=== PATIENT | female | born 1995 | race Caucasian/White ===

== ENCOUNTER 2016-12-05 13:47 | Inpatient (IN) | payer BC, MEDICAID ==
[~2016-12-05] VITALS: Ht 162.6 cm; Wt 99.0 kg
[2016-12-05 14:10] VITALS: BP 133/69; PULSE 61; RESP 16; Ht 162.6 cm; Wt 99.0 kg
[2016-12-05] MEDS ORDERED: ONDANSETRON 4 MG INJ IV PRN (15:30)
[2016-12-05] MEDS ORDERED: ACETAMINOPHEN 325 MG TAB PO PRN (15:30)
[2016-12-05] MEDS ORDERED: NACL 0.9% 3 ML SYG IV SCH (15:30)
[2016-12-05] MEDS ORDERED: BISACODYL 10 MG SUPP PR PRN (15:30)
[2016-12-05] MEDS ORDERED: ACETAMINOPHEN 650 MG SUPP PR PRN (15:30)
--- NOTE | 2016-12-05 15:30 | HP ---
Date/Time of Note Date/Time of Note DATE: 12/05/16 TIME: 15:16 Assessment/Plan VTE Prophylaxis VTE Prophylaxis Intervention: SCD's Assessment/Plan Chief Complaint/Hosp Course Assessment and plan 1. Abdominal pain. Patient with recent history of gastritis and clinical symptoms consistent with GERD. Will provide with PPI medication. Patient also noted with dilated CBD. Will get process development chemist follow. 2. Bradycardia. Etiology unknown. Follow-up an EKG. Will get egg breaking machine operator to follow pending clinical course. Patient asymptomatic at present. 3. Positive leukocyte esterase test. Follow-up on urine culture. Afebrile at present and no leukocytosis noted. Will follow. 4. Obesity. Weight reduction is advised. Plan with plan 5. GERD. Start on PPI medication 6. Recent gastritis. Will be placed on PPI Admission process 40 minutes Discussed plan of care with Dr. Lewis Problems: HPI/ROS Admit Date/Time Admit Date/Time Dec 05, 2016 at 13:59 Hx of Present Illness This is a 21-year-old female with history of gallstones status post cholecystectomy who came to [facility] due to reports of abdominal pain. Of note patient was transferred from [facility] due to insurance issue. According to the patient she had been having abdominal pain for the last month. She did report that she initially went to [facility] and at that time was told she had gastritis. She was discharged home with pain medication. Thereafter her pain persisted and went to [facility] and was told again showed gastritis and was given lansoprazole. She did report she took it for 2 weeks and had good response but ran out of the medication and a week after running out of her medication again started to have pain. In the past week she reported abdominal pain that would occur more when she would sleep and lie down at night. She reports that the past 2 days prior to this admission her pain lasted about 3 hours more epigastric nonradiating. She also reported that he was also travel up to her sternal area. She reports that last night her pain lasted all night and would not stop. She subsequently went to the hospital at [place] for further evaluation. At that hospital he did have abdominal pelvic imaging that did show common bile duct measuring 10.5 mm at the head of the pancreas with dilated intra-and extrahepatic ducts with cause not detected. Patient was noted with no leukocytosis. She was seen with a positive leukocyte esterase test however. She is also seen to be bradycardic as low as the 40s. She denies any dysuria however. She did report having some nausea and vomiting with nonbilious nonbloody emesis. She denies any chest pain or shortness of breath or any other associated symptoms. We will evaluate her for the aformentiond ROS 12 point review of systems obtained and entirely negative except that mentioned in history present illness PMH/Family/Social Past Medical History Medical/surgical history 1. Cholelithiasis status post cholecystectomy Social History Alcohol Use: none Drug Use: none Exam/Review of Systems Vital Signs Vitals Vital Signs Date Time Temp Pulse Resp B/P Pulse Ox O2 Delivery O2 Flow Rate FiO2 12/05/16 14:10 97.8 61 16 133/69 100 Room Air Exam Constitutional: alert, oriented Psych: no complaints Head: normocephalic Neck: supple, No jvd Respiratory: clear to auscultation, normal air movement Cardiovascular: regular rate and rhythm Gastrointestinal: non-tender, soft Neurological: STRAP SETTER II-XII intact, nl mental status, nl speech REGIDORUMESH Dec 05, 2016 15:27
[2016-12-05] MEDS: SOD CHLORIDE 0.9% 1,000 ML IV SCH (16:03)
[2016-12-05 16:09] LABS: BASOPHILS % 0.5 % (0.0-2.0); EOSINOPHILS % 0.7 % (0.0-7.0); HEMOGLOBIN 12.3 g/dl (12.0-16.0); LYMPHOCYTES # 1.6 10^3/ul (0.8-2.9); LYMPHOCYTES % 39.3 % (15.0-51.0); MEAN CORPUSCULAR HEMOGLOBIN 29.6 pg (29.0-33.0); MEAN CORPUSCULAR HGB CONC 33.2 g/dl (32.0-37.0); MEAN CORPUSCULAR VOLUME 88.9 fl (82.0-101.0); MONOCYTE # 0.4 10^3/ul (0.3-0.9); MONOCYTES % 9.6 % (0.0-11.0); NEUTROPHILS % 49.7 % (39.0-77.0); PLATELET COUNT 261 10^3/UL (140-415); RED BLOOD COUNT 4.16 10^6/ul (4.20-5.40); WHITE BLOOD COUNT 4.1 10^3/ul (4.8-10.8)
--- NOTE | 2016-12-05 16:16 | CONS ---
Date/Time of Note Date/Time of Note DATE: 12/05/16 TIME: 16:02 Assessment/Plan Assessment/Plan Additional Assessment/Plan Assessment * Abdominal pain * Elevated transaminases * History of cholecystectomy 3 years ago * Obesity Plan * NPO * trend transaminase level * MRCP * may have ice chips * further orders will depend on clinical course Consultation Date/Type/Reason Admit Date/Time Dec 05, 2016 at 13:59 Date of Consultation: Dec 05, 2016 Type of Consultation: Gastroenterology Reason for Consultation abdominal pain/dilated cbd Referring Provider: UMESH REICH Hx of Present Illness 21 year old female with past medical history of cholecystectomy was transferred to our hospital because of epigastric pain and dilated common bile duct by ultrasound,insurance issues.Present condition as on and off epigastric pain sharp,non radiating,with nausea and vomiting.She consulted various emergency room and diagnosed as having gastritis until 2 days prior to consult ,sharp epigastric pain becomes unbearable prompted consult at [facility] ultrasound revealed dilated intra and extrahepatic duct,Cbc showed wbc 6.5, alkaline phosphatase 129,lipase 34 alt 292,ast 448. Presently patient complains of epigastric pain ,no nausea nor vomiting Constitutional: improved, no complaints Eyes: no complaints ENT: no complaints Respiratory: no complaints Cardiovascular: no complaints Gastrointestinal: nausea, pain, vomiting Genitourinary: no complaints Musculoskeletal: no complaints Skin: no complaints Neurologic: no complaints Endocrine: no complaints Lymphatic: no complaints Psychological: no complaints Immunologic: no complaints Past Medical History Medical History: no pertinent history Past Surgical History Past Surgical Hx: cholecystectomy Family History Significant Family History: no pertinent family hx Social History Alcohol Use: none Smoking Status: Never smoker Drug Use: none Exam/Review of Systems Vital Signs Vitals Vital Signs Date Time Temp Pulse Resp B/P Pulse Ox O2 Delivery O2 Flow Rate FiO2 12/05/16 14:10 97.8 61 16 133/69 100 Room Air Exam Constitutional: alert, oriented, well developed Psych: nl mood/affect, no complaints Head: atraumatic, normocephalic Eyes: EOMI, PERRL, nl conjunctiva, nl lids, nl sclera ENMT: nl external ears & nose, nl lips & teeth, nl nasal mucosa & septum Neck: non-tender, supple Respiratory: clear to auscultation, normal air movement Cardiovascular: nl pulses, regular rate and rhythm Gastrointestinal: bowel sounds, soft, tender (epigastric), No rebound or guarding Musculoskeletal: nl extremities to inspection, nl gait and stance Extremities: normal pulses Neurological: SYRUP MIXER II-XII intact, nl mental status, nl speech, nl strength Skin: nl turgor, No rash or lesions Lymph: nl lymph nodes Medications Medications Current Medications Sodium Chloride (NS) 1,000 ml @ 100 mls/hr Q10H IV ; Start 12/05/16 at 15:09 Ondansetron HCl (Zofran Inj) 4 mg Q6H PRN IV NAUSEA AND/OR VOMITING; Start at 15:30 Acetaminophen (Tylenol Tab) 650 mg Q6H PRN PO PAIN LEVEL 1-3 OR FEVER; Start at 15:30 Acetaminophen (Tylenol Supp) 650 mg Q6H PRN [place] PAIN LEVEL 1-3 OR FEVER; Start 12/05/16 at 15:30 Morphine Sulfate (morphine) 2 mg Q4H PRN IV SEVERE PAIN LEVEL 7-10; Start 12/05 at 15:30 Bisacodyl (Dulcolax Supp) 10 mg DAILY PRN [place] CONSTIPATION; Start 12/05/16 at 15 :30 Pantoprazole (Protonix Iv) 40 mg DAILY@06 IV ; Start 12/06/16 at 06:00 MILLICENT BRAVO MD Dec 05, 2016 16:15
[2016-12-05 16:29] LABS: ALBUMIN 3.8 g/dl (3.3-4.9); ALBUMIN/GLOBULIN RATIO 1.52; BILIRUBIN,INDIRECT 0.4 mg/dl (0-1.1); BILIRUBIN,TOTAL 0.4 mg/dl (0.2-1.3); CALCIUM 8.8 mg/dl (8.4-10.2); CREATININE 0.58 mg/dl (0.44-1.00); POTASSIUM 4.1 mmol/L (3.5-5.1); TOTAL PROTEIN 6.3 g/dl (6.1-8.1)
--- NOTE | 2016-12-05 20:33 | RADRPT ---
PROCEDURE: MR Abdomen without contrast and MRCP. CLINICAL INDICATION: Abdominal pain. TECHNIQUE: Routine MRI abdomen without contrast, including MRCP, was performed. COMPARISON: None. FINDINGS: Liver demonstrates homogeneous signal and enhancement without a focal lesion. There is trace perihe patic fluid. The gallbladder is surgically absent. The biliary system is normal in caliber. A tiny filling defe ct measuring up to 3 mm is inconsistently demonstrated. The spleen, adrenal glands, and pancreas are unremarkable. Renal enhancement is symmetric without hydronephrosis. The visualized bowel is normal in caliber without mural thickening. Marrow signal is unremarkable. IMPRESSION: MRCP images are limited by respiratory motion artifact. However, there does appear to be a tiny 3 m m filling defect in the distal common bile duct suggestive of a small retained stone. Recommend ERC P for further assessment, especially given elevation of LFTs. RPTAT: HEKC .Gordon Falcon MD, Date Time Electronically viewed and signed by .Gordon Falcon MD, on 12/05/2016 20:33 .C/
[2016-12-05 20:38] VITALS: BP 124/64; RESP 16
[2016-12-06] VITALS (12 sets, daily range): BP systolic 101–121; BP diastolic 53–75; PULSE 54–102; RESP 13–20
[2016-12-06] MEDS: SOD CHLORIDE 0.9% 1,000 ML IV SCH ×4 (01:09→21:09)
[2016-12-06] MEDS: morphine 2 MG INJ IV PRN (01:36)
[2016-12-06] MEDS: PANTOPRAZOLE 40 MG INJ IV SCH (05:20)
[2016-12-06 05:39] LABS: BILIRUBIN,INDIRECT 0.4 mg/dl (0-1.1); BILIRUBIN,TOTAL 0.4 mg/dl (0.2-1.3); CALCIUM 8.6 mg/dl (8.4-10.2); CREATININE 0.66 mg/dl (0.44-1.00); MAGNESIUM 1.8 mg/dl (1.7-2.5)
[2016-12-06 05:40] LABS: ALBUMIN 3.6 g/dl (3.3-4.9); ALBUMIN/GLOBULIN RATIO 1.44; CHOL/HDL RATIO 2.3 RATIO; TOTAL PROTEIN 6.1 g/dl (6.1-8.1)
[2016-12-06] MEDS ORDERED: PROPOFOL 200 MG INJ ONE (07:00)
[2016-12-06 07:34] LABS: T3 UPTAKE 33.3 % (23.5-40.5)
[2016-12-06 07:51] LABS: THYROID STIMULATING HORMONE 1.35 MIU/L (0.465-4.680)
[2016-12-06] MEDS ORDERED: INDOMETHACIN 50 MG SUPP PR ONE (10:30)
--- NOTE | 2016-12-06 14:46 | PN ---
Date/Time of Note Date/Time of Note DATE: 12/06/16 TIME: 14:40 Assessment/Plan VTE Prophylaxis VTE Prophylaxis Intervention: SCD's Lines/Catheters IV Catheter Type (from [facility]): Peripheral IV Assessment/Plan Chief Complaint/Hosp Course Assessment and plan 1. Abdominal pain. Patient with recent history of gastritis and clinical symptoms consistent with GERD. Will provide with PPI medication. Patient also noted with dilated CBD. GI consult following. MRCP showing: MRCP images are limited by respiratory motion artifact. However, there does appear to be a tiny 3 mm filling defect in the distal common bile duct suggestive of a small retained stone. Recommend ERCP for further assessment, especially given elevation of LFTs. Follow up with GI recs 2. Bradycardia. Etiology unknown. Follow-up an EKG. Will get assistant professor of chemistry to follow pending clinical course. Patient asymptomatic at present. 3. Positive leukocyte esterase test. Follow-up on urine culture. Afebrile at present and no leukocytosis noted. Will follow. 4. Obesity. Weight reduction is advised. Plan with plan 5. GERD. Start on PPI medication 6. Recent gastritis. Will be placed on PPI Disposition and plan: GI following. Possible need for ERCP. We will follow-up with gastroneurologist. Continue inpatient monitoring for now. Discussed plan of care with Dr. Naylor Problems: Subjective 24 Hr Interval Summary Free Text/Dictation no s/s of distress Exam/Review of Systems Vital Signs Vitals Vital Signs Date Time Temp Pulse Resp B/P Pulse Ox O2 Delivery O2 Flow Rate FiO2 12/06/16 09:26 98.4 52 20 114/53 100 12/05/16 14:10 Room Air Intake and Output 12/05/16 12/05/16 12/06/16 15:00 23:00 07:00 Intake Total 200 ml 1100 ml Output Total 300 ml Balance 200 ml 800 ml Exam Constitutional: alert, oriented Head: normocephalic Eyes: nl conjunctiva Respiratory: clear to auscultation Cardiovascular: regular rate and rhythm Gastrointestinal: soft, tender Musculoskeletal: nl extremities to inspection Neurological: ADULT NEUROLOGIST II-XII intact, nl mental status, nl speech Results Result Diagram: 12/05/16 1550 12/06/16 0452 Results 24 hrs Laboratory Tests Test 12/05/16 15:50 12/06/16 04:52 White Blood Count 4.1 L Red Blood Count 4.16 L Hemoglobin 12.3 Hematocrit 37.0 Mean Corpuscular Volume 88.9 Mean Corpuscular Hemoglobin 29.6 Mean Corpuscular Hemoglobin Concent 33.2 Red Cell Distribution Width 13.0 Platelet Count 261 Mean Platelet Volume 11.0 H Neutrophils % 49.7 Lymphocytes % 39.3 Monocytes % 9.6 Eosinophils % 0.7 Basophils % 0.5 Nucleated Red Blood Cells % 0.0 Neutrophils # 2.0 Lymphocytes # 1.6 Monocytes # 0.4 Eosinophils # 0.0 Basophils # 0.0 Nucleated Red Blood Cells # 0.0 Sodium Level 144 145 H Potassium Level 4.1 4.0 Chloride Level 105 109 Carbon Dioxide Level 27 24 Anion Gap 16 16 Blood Urea Nitrogen 5 L 4 L Creatinine 0.58 0.66 Glucose Level 87 85 Calcium Level 8.8 8.6 Total Bilirubin 0.4 0.4 Direct Bilirubin 0.00 0.00 Indirect Bilirubin 0.4 0.4 Aspartate Amino Transf (AST/SGOT) 570 H 314 H Alanine Aminotransferase (ALT/SGPT) 547 H 449 H Alkaline Phosphatase 133 H 135 H Total Protein 6.3 6.1 Albumin 3.8 3.6 Globulin 2.50 2.50 Albumin/Globulin Ratio 1.52 1.44 Hemoglobin A1c 5.4 Phosphorus Level 3.0 Magnesium Level 1.8 Triglycerides Level 47 Cholesterol Level 120 LDL Cholesterol, Calculated 60 HDL Cholesterol 51 Cholesterol/HDL Ratio 2.3 Thyroid Stimulating Hormone (TSH) 1.350 Free Thyroxine Index 2.96 Thyroxine (T4) 8.9 Triiodothyronine (T3) Uptake 33.3 Medications Medications Current Medications Sodium Chloride (NS) 1,000 ml @ 100 mls/hr Q10H IV Last administered on t 14:18; Admin Dose 100 MLS/HR; Start 12/05/16 at 15:09 Ondansetron HCl (Zofran Inj) 4 mg Q6H PRN IV NAUSEA AND/OR VOMITING; Start at 15:30 Acetaminophen (Tylenol Tab) 650 mg Q6H PRN PO PAIN LEVEL 1-3 OR FEVER; Start at 15:30 Acetaminophen (Tylenol Supp) 650 mg Q6H PRN [place] PAIN LEVEL 1-3 OR FEVER; Start 12/05/16 at 15:30 Morphine Sulfate (morphine) 2 mg Q4H PRN IV SEVERE PAIN LEVEL 7-10 Last administered on 12/06/16 01:36; Admin Dose 2 MG; Start 12/05/16 at 15:30 Bisacodyl (Dulcolax Supp) 10 mg DAILY PRN [place] CONSTIPATION; Start 12/05/16 at 15 :30 Pantoprazole (Protonix Iv) 40 mg DAILY@06 IV Last administered on 12/06/16 05: 20; Admin Dose 40 MG; Start 12/06/16 at 06:00 UMESH REICH Dec 06, 2016 14:46
[2016-12-06] MEDS ORDERED: IOHEXOL 300MG/ML 30 ML BTL ONE (16:55)
[2016-12-06] MEDS ORDERED: SUCCINYLCHOLINE CHLORIDE 100 MG/5 ML SYG IV ONE (18:26)
[2016-12-06] MEDS ORDERED: LIDOCAINE 2% (SDV) 5 ML INJ ONE (18:26)
[2016-12-06] MEDS ORDERED: PROPOFOL 20 ML ONE (18:26)
[2016-12-06] MEDS ORDERED: MIDAZOLAM 1 MG/ML 2 ML INJ ONE (18:29)
[2016-12-06] MEDS ORDERED: DEXAMETHASONE 4 MG/ML 1 ML INJ ONE (18:43)
[2016-12-06] MEDS ORDERED: FAMOTIDINE 20 MG INJ ONE (18:43)
[2016-12-06] MEDS ORDERED: ONDANSETRON 4 MG INJ ONE (18:43)
[2016-12-06] MEDS ORDERED: DIPHENHYDRAMINE 50 MG INJ IV PRN (19:00)
[2016-12-06] MEDS ORDERED: HYDROmorphONE (0.2 MG/ML) 10ML SYG IV PRN (19:00)
[2016-12-06] MEDS ORDERED: FENTAnyl 50 MCG/ML VIAL IV PRN (19:00)
[2016-12-06] MEDS ORDERED: MEPERIDINE 25 MG INJ IV PRN (19:00)
[2016-12-06] MEDS ORDERED: PROCHLORPERAZINE 10 MG INJ IV PRN (19:00)
[2016-12-06] MEDS ORDERED: ONDANSETRON 4 MG INJ IV PRN (19:00)
[2016-12-07] MEDS: morphine 2 MG INJ IV PRN (03:59)
[2016-12-07] MEDS: PANTOPRAZOLE 40 MG INJ IV SCH (05:26)
[2016-12-07] MEDS: SOD CHLORIDE 0.9% 1,000 ML IV SCH ×2 (07:09→17:53)
[2016-12-07 07:28] VITALS: BP 97/67; RESP 18
[2016-12-07 08:28] VITALS: BP 97/67; RESP 18
[2016-12-07 08:37] LABS: ADD UMIC YES; UR ASCORBIC ACID NEGATIVE (NEGATIVE); UR BILIRUBIN (Dip) NEGATIVE (NEGATIVE); UR BLOOD (Dip) 1+ mg/dL (NEGATIVE); UR CLARITY CLEAR (CLEAR); UR COLOR STRAW (YELLOW); UR GLUCOSE (Dip) NEGATIVE (NEGATIVE); UR KETONES (Dip) 2+ mg/dL (NEGATIVE); UR LEUKOCYTE ESTERASE (Dip) NEGATIVE Leu/ul (NEGATIVE); UR NITRITE (Dip) NEGATIVE (NEGATIVE); UR RBC 1 /HPF (0-5); UR SPECIFIC GRAVITY (Dip) 1.009 (1.003-1.030); UR TOTAL PROTEIN (Dip) NEGATIVE (NEGATIVE); UR UROBILINOGEN (Dip) NEGATIVE (NEGATIVE)
--- NOTE | 2016-12-07 09:06 | GILP ---
DATE OF PROCEDURE: 12/05/2016 CLINICIAN: Bernardo Molina MD. PROCEDURE PERFORMED: Endoscopic retrograde cholangiopancreatography with endoscopic retrograde sphincterotomy and stone removal. PREMEDICATION: General anesthesia. INDICATION: The patient has dilated common bile duct and 3 mm stone on MRI. INSTRUMENT USED: Olympus side-viewing panendoscope. TECHNIQUE: After informed consent, with the patient/relatives understanding the procedure, its indications, potential risks and complications, including but not limited to: allergic reaction, bleeding, perforation or infection, and after all pertinent questions were answered to the patients satisfaction, the patient/relatives signed witnessed informed consent. Following this, premedication was administered slowly IV push under careful cardiovascular and respiratory monitoring with pulse oximetry, automatic blood pressure and hospital monitor. Once the sedative effect was achieved the patient was place in the prone position in the radiology special procedures suite; the side viewing panendoscope was introduced and advanced under visual control. Careful examination of the upper gastrointestinal tract, both on insertion as well as withdrawal of the instrument disclosed the following findings: ESOPHAGUS: The mucosa of the entire esophagus appears within normal limits. There is no evidence of esophagitis, varices, neoplasm or stricture. No Hiatal Hernia identified. STOMACH: Upon entrance to the stomach air was insufflated, the gastric lou distended normally. The mucosa of the fundus, body and antrum of the stomach was carefully examined both head-on and on retroflexion, and shows no abnormalities. There is no evidence of gastritis, ulcers or neoplasm. PYLORUS: The pylorus appears patent and within normal limits, with no evidence of gastric outlet obstruction. DUODENUM: The duodenal mucosa was carefully examined in the duodenal bulb as well as the second portion of the duodenum and appears unremarkable with no evidence of duodenitis, ulcer or neoplasm. AMPULLA OF VATER: The ampulla of Vater was reached, it was cannulated without difficulty, it appears significantly dilated with estimated maximum diameter of 15-16 mL. A very small filling defect is noted in distal common bile duct. There is poor emptying. A standard sphincterotomy was performed. Following this, balloon catheter was utilized and emptying was restored, and the filling defect appeared to be removed. No additional abnormalities are noted. IMPRESSION: Dilated common bile duct. Estimated maximum diameter 16 mm with poor emptying and a filling defect in the distal common bile duct. Post-sphincterotomy and stone removal. PLAN: The patient will be observed. Further recommendations will be based on clinical course. Dictated By: Bernardo Molina MD /jeffrey/marcello /Document#: [id number]
--- NOTE | 2016-12-07 13:12 | PN ---
Date/Time of Note Date/Time of Note DATE: 12/07/16 TIME: 13:05 Assessment/Plan VTE Prophylaxis VTE Prophylaxis Intervention: SCD's Lines/Catheters IV Catheter Type (from Nrs): Peripheral IV Assessment/Plan Chief Complaint/Hosp Course 1. Abdominal pain secondary to choledocholithiasis-resolved status post ERCP with stone extraction -LFTs are trending down 2. Asymptomatic bradycardia-monitor 3. Recent gastritis -Continue PPI 4. Obesity. Weight reduction is advised 5. Elevated LFTs likely secondary to #1 -Check hepatitis panel -Monitor Prophylaxis: SCDs Discharge planning: Continue monitor LFTs, DC when cleared by GI, patient will start a clear liquid diet Problems: Subjective 24 Hr Interval Summary Constitutional: no complaints Exam/Review of Systems Vital Signs Vitals Vital Signs Date Time Temp Pulse Resp B/P Pulse Ox O2 Delivery O2 Flow Rate FiO2 12/07/16 08:28 97.8 52 18 97/67 96 12/06/16 20:10 Room Air Intake and Output 12/06/16 12/06/16 12/07/16 15:00 23:00 07:00 Intake Total 1000 ml 800 ml Output Total 900 ml Balance 1000 ml -100 ml Exam Constitutional: alert, oriented Respiratory: clear to auscultation Cardiovascular: regular rate and rhythm Gastrointestinal: soft, No distended Musculoskeletal: nl extremities to inspection Results Result Diagram: 12/05/16 1550 12/06/16 0452 Results 24 hrs Laboratory Tests Test 12/07/16 05:00 Urine Color STRAW Urine Clarity CLEAR Urine pH 5.0 Urine Specific [place] 1.009 Urine Ketones 2+ H Urine Nitrite NEGATIVE Urine Bilirubin NEGATIVE Urine Urobilinogen NEGATIVE Urine Leukocyte Esterase NEGATIVE Urine Microscopic RBC 1 Urine Microscopic WBC 0 Urine Hemoglobin 1+ H Urine Glucose NEGATIVE Urine Total Protein NEGATIVE Medications Medications Current Medications Sodium Chloride (NS) 1,000 ml @ 100 mls/hr Q10H IV Last administered on t 21:09; Admin Dose 100 MLS/HR; Start 12/05/16 at 15:09 Ondansetron HCl (Zofran Inj) 4 mg Q6H PRN IV NAUSEA AND/OR VOMITING; Start at 15:30 Acetaminophen (Tylenol Tab) 650 mg Q6H PRN PO PAIN LEVEL 1-3 OR FEVER; Start at 15:30 Acetaminophen (Tylenol Supp) 650 mg Q6H PRN [place] PAIN LEVEL 1-3 OR FEVER; Start 12/05/16 at 15:30 Morphine Sulfate (morphine) 2 mg Q4H PRN IV SEVERE PAIN LEVEL 7-10 Last administered on 12/07/16 03:59; Admin Dose 2 MG; Start 12/05/16 at 15:30 Bisacodyl (Dulcolax Supp) 10 mg DAILY PRN [place] CONSTIPATION; Start 12/05/16 at 15 :30 Pantoprazole (Protonix Iv) 40 mg DAILY@06 IV Last administered on 12/07/16 05: 26; Admin Dose 40 MG; Start 12/06/16 at 06:00 MAX LINARES Dec 07, 2016 13:12
--- NOTE | 2016-12-07 14:36 | PN ---
Date/Time of Note Date/Time of Note DATE: 12/07/16 TIME: 14:31 Assessment/Plan VTE Prophylaxis VTE Prophylaxis Intervention: ambulation Lines/Catheters IV Catheter Type (from Nrs): Peripheral IV Assessment/Plan Assessment/Plan Assessment * Choledocholithiasis ERCP Dilated common bile duct. Estimated maximum diameter 16 mm with poor emptying and a filling defect in the distal common bile duct. Post-sphincterotomy and stone removal. * History of cholecystectomy 3 years ago * Obesity Plan * continue present management * progress diet to soft then regular if tolerated * case discussed with Dr Molina * Further orders will depend on clinical course Subjective 24 Hr Interval Summary Free Text/Dictation * Course reviewed with RN * Patient seen and examined * ERCP Dilated common bile duct. Estimated maximum diameter 16 mm with poor emptying and a filling defect in the distal common bile duct. Post-sphincterotomy and stone removal. Exam/Review of Systems Vital Signs Vitals Vital Signs Date Time Temp Pulse Resp B/P Pulse Ox O2 Delivery O2 Flow Rate FiO2 12/07/16 08:28 97.8 52 18 97/67 96 12/06/16 20:10 Room Air Intake and Output 12/06/16 12/06/16 12/07/16 15:00 23:00 07:00 Intake Total 1000 ml 800 ml Output Total 900 ml Balance 1000 ml -100 ml Exam Constitutional: alert, oriented Psych: nl mood/affect, no complaints Head: atraumatic, normocephalic Neck: non-tender, supple Respiratory: clear to auscultation, normal air movement Cardiovascular: nl pulses, regular rate and rhythm Gastrointestinal: non-tender, soft Musculoskeletal: nl extremities to inspection, nl gait and stance Extremities: normal pulses Neurological: nl speech, nl strength Skin: nl turgor, No rash or lesions Lymph: nl lymph nodes Results Result Diagram: 12/05/16 1550 12/06/16 0452 Results 24 hrs Laboratory Tests Test 12/07/16 05:00 Urine Color STRAW Urine Clarity CLEAR Urine pH 5.0 Urine Specific [place] 1.009 Urine Ketones 2+ H Urine Nitrite NEGATIVE Urine Bilirubin NEGATIVE Urine Urobilinogen NEGATIVE Urine Leukocyte Esterase NEGATIVE Urine Microscopic RBC 1 Urine Microscopic WBC 0 Urine Hemoglobin 1+ H Urine Glucose NEGATIVE Urine Total Protein NEGATIVE Medications Medications Current Medications Sodium Chloride (NS) 1,000 ml @ 100 mls/hr Q10H IV Last administered on 21:09; Admin Dose 100 MLS/HR; Start 12/05/16 at 15:09 Ondansetron HCl (Zofran Inj) 4 mg Q6H PRN IV NAUSEA AND/OR VOMITING; Start at 15:30 Acetaminophen (Tylenol Tab) 650 mg Q6H PRN [place] PAIN LEVEL 1-3 OR FEVER; Start at 15:30 Acetaminophen (Tylenol Supp) 650 mg Q6H PRN [place] PAIN LEVEL 1-3 OR FEVER; Start 12/05/16 at 15:30 Morphine Sulfate (morphine) 2 mg Q4H PRN IV SEVERE PAIN LEVEL 7-10 Last administered on 12/07/16 03:59; Admin Dose 2 MG; Start 12/05/16 at 15:30 Bisacodyl (Dulcolax Supp) 10 mg DAILY PRN [place] CONSTIPATION; Start 12/05/16 at 15 :30 Pantoprazole (Protonix Iv) 40 mg DAILY@06 IV Last administered on 12/07/16 05: 26; Admin Dose 40 MG; Start 12/06/16 at 06:00 ARIANNA MISTRY NP Dec 07, 2016 14:36
[2016-12-07 16:06] VITALS: BP 110/71; RESP 18
--- NOTE | 2016-12-07 16:49 | RADRPT ---
PROCEDURE: Intraoperative imaging for ERCP with fluoroscopy. CLINICAL INDICATION: Right upper quadrant pain. Intraoperative. TECHNIQUE: A single image of the right upper quadrant of the abdomen was obtained in the operating room with an image intensifier. No radiologist was in attendance. 190 seconds of fluoroscopy time was used. COMPARISON: MRCP dated 12/05/2016. FINDINGS: The image demonstrates the endoscope in position and a dilated common bile duct with dilated intrahe patic bile ducts. IMPRESSION: 1. ERCP as described above. RPTAT: QQ .Jhonatan Coello MD, MD Date Time Electronically viewed and signed by .Jhonatan Coello MD, MD on 12/07/2016 16:49 .R/
[2016-12-07 20:13] VITALS: BP 110/52; RESP 19
[2016-12-08] MEDS: SOD CHLORIDE 0.9% 1,000 ML IV SCH ×2 (03:09→13:09)
[2016-12-08 05:11] LABS: HAAIG REFLEX REFLEX FILED
[2016-12-08 05:20] LABS: BASOPHILS % 0.2 % (0.0-2.0); EOSINOPHILS # 0.1 10^3/ul (0.0-0.5); EOSINOPHILS % 0.7 % (0.0-7.0); HEMATOCRIT 36.7 % (37.0-47.0); HEMOGLOBIN 12.1 g/dl (12.0-16.0); LYMPHOCYTES # 2.4 10^3/ul (0.8-2.9); LYMPHOCYTES % 20.3 % (15.0-51.0); MEAN CORPUSCULAR HEMOGLOBIN 29.1 pg (29.0-33.0); MEAN CORPUSCULAR VOLUME 88.2 fl (82.0-101.0); MEAN PLATELET VOLUME 11.1 fl (7.4-10.4); MONOCYTE # 0.7 10^3/ul (0.3-0.9); MONOCYTES % 5.6 % (0.0-11.0); NEUTROPHIL # 8.5 10^3/ul (1.6-7.5); NEUTROPHILS % 72.9 % (39.0-77.0); PLATELET COUNT 250 10^3/UL (140-415); RED BLOOD COUNT 4.16 10^6/ul (4.20-5.40); WHITE BLOOD COUNT 11.7 10^3/ul (4.8-10.8)
[2016-12-08] MEDS: PANTOPRAZOLE 40 MG INJ IV SCH (05:32)
[2016-12-08 05:47] LABS: ALBUMIN 3.7 g/dl (3.3-4.9); ALBUMIN/GLOBULIN RATIO 1.48; BILIRUBIN,INDIRECT 0.1 mg/dl (0-1.1); BILIRUBIN,TOTAL 0.1 mg/dl (0.2-1.3); CREATININE 0.66 mg/dl (0.44-1.00); POTASSIUM 3.5 mmol/L (3.5-5.1); TOTAL PROTEIN 6.2 g/dl (6.1-8.1)
[2016-12-08 06:30] LABS: HEPATITIS B CORE ANTIBODY NEGATIVE (NEGATIVE)
[2016-12-08 07:54] VITALS: BP 124/58; RESP 19
--- NOTE | 2016-12-08 08:57 | RADRPT ---
Vent Rate: 46 bpm RR Interval: 0 msec [place] Interval: 144 msec QRS Duration: 86 msec QT Interval: 482 msec QTC Interval: 421 msec P-R-T [place]: 34 - 61 - 53 degrees Marked sinus bradycardia Abnormal ECG Electronically Signed By: Nate Rodriguez [id number]
--- NOTE | 2016-12-08 11:09 | PDOCDIS ---
Discharge Instructions CONDITION Patient Condition: Good HOME CARE INSTRUCTIONS: Diet Instructions: Reduced Calorie ACTIVITY: Activity Restrictions: Slowly Increase Activity Rest between Activity Avoid heavy lifting Bathing Restrictions: Shower FOLLOW UP/APPOINTMENTS Follow-up Plan F/U WITH YOUR PCP IN 1-2 WEEKS MAX LINARES Dec 08, 2016 11:09
--- NOTE | 2016-12-08 12:45 | PN ---
Date/Time of Note Date/Time of Note DATE: 12/08/16 TIME: 12:42 Assessment/Plan VTE Prophylaxis VTE Prophylaxis Intervention: ambulation Lines/Catheters IV Catheter Type (from Nrs): Saline Lock Assessment/Plan Assessment/Plan Assessment * Choledocholithiasis ERCP Dilated common bile duct. Estimated maximum diameter 16 mm with poor emptying and a filling defect in the distal common bile duct. Post-sphincterotomy and stone removal. * History of cholecystectomy 3 years ago * Obesity Plan * [facility] for outpatient management * case discussed with Dr Molina Subjective 24 Hr Interval Summary Free Text/Dictation * course reviewed with RN * No untoward events overnight * patient seen and examined Exam/Review of Systems Vital Signs Vitals Vital Signs Date Time Temp Pulse Resp B/P Pulse Ox O2 Delivery O2 Flow Rate FiO2 12/08/16 07:54 98.1 61 19 124/58 100 12/06/16 20:10 Room Air Intake and Output 12/07/16 12/07/16 12/08/16 15:00 23:00 07:00 Intake Total 480 ml 1600 ml 800 ml Output Total 900 ml Balance 480 ml 700 ml 800 ml Exam Constitutional: alert, oriented Psych: nl mood/affect, no complaints Head: atraumatic, normocephalic Eyes: EOMI, PERRL, nl conjunctiva, nl lids, nl sclera ENMT: nl external ears & nose, nl lips & teeth, nl nasal mucosa & septum Neck: non-tender, supple Respiratory: clear to auscultation, normal air movement Cardiovascular: nl pulses, regular rate and rhythm Gastrointestinal: nl liver, spleen, non-tender, soft Musculoskeletal: nl extremities to inspection, nl gait and stance Extremities: normal pulses Neurological: nl strength Skin: nl turgor, No rash or lesions Lymph: nl lymph nodes Results Result Diagram: 12/08/16 0450 12/08/16 0450 Results 24 hrs Laboratory Tests Test 12/08/16 04:50 White Blood Count 11.7 #H Red Blood Count 4.16 L Hemoglobin 12.1 Hematocrit 36.7 L Mean Corpuscular Volume 88.2 Mean Corpuscular Hemoglobin 29.1 Mean Corpuscular Hemoglobin Concent 33.0 Red Cell Distribution Width 13.0 Platelet Count 250 Mean Platelet Volume 11.1 H Neutrophils % 72.9 Lymphocytes % 20.3 Monocytes % 5.6 Eosinophils % 0.7 Basophils % 0.2 Nucleated Red Blood Cells % 0.0 Neutrophils # 8.5 H Lymphocytes # 2.4 Monocytes # 0.7 Eosinophils # 0.1 Basophils # 0.0 Nucleated Red Blood Cells # 0.0 Sodium Level 145 H Potassium Level 3.5 Chloride Level 103 Carbon Dioxide Level 26 Anion Gap 20 H Blood Urea Nitrogen 6 L Creatinine 0.66 Glucose Level 87 Calcium Level 9.0 Magnesium Level 1.5 L Total Bilirubin 0.1 L Direct Bilirubin 0.00 Indirect Bilirubin 0.1 Aspartate Amino Transf (AST/SGOT) 39 Alanine Aminotransferase (ALT/SGPT) 209 H Alkaline Phosphatase 109 Total Protein 6.2 Albumin 3.7 Globulin 2.50 Albumin/Globulin Ratio 1.48 Hepatitis B Surface Antigen NEGATIVE Hepatitis B Core Total Antibody NEGATIVE Hepatitis C Antibody NEGATIVE Medications Medications Current Medications Sodium Chloride (NS) 1,000 ml @ 100 mls/hr Q10H IV Last administered on 17:53; Admin Dose 100 MLS/HR; Start 12/05/16 at 15:09 Ondansetron HCl (Zofran Inj) 4 mg Q6H PRN IV NAUSEA AND/OR VOMITING; Start at 15:30 Acetaminophen (Tylenol Tab) 650 mg Q6H PRN PO PAIN LEVEL 1-3 OR FEVER; Start at 15:30 Acetaminophen (Tylenol Supp) 650 mg Q6H PRN MT PAIN LEVEL 1-3 OR FEVER; Start 12/05/16 at 15:30 Morphine Sulfate (morphine) 2 mg Q4H PRN IV SEVERE PAIN LEVEL 7-10 Last administered on 12/07/16 03:59; Admin Dose 2 MG; Start 12/05/16 at 15:30 Bisacodyl (Dulcolax Supp) 10 mg DAILY PRN MT CONSTIPATION; Start 12/05/16 at 15 :30 Pantoprazole (Protonix Iv) 40 mg DAILY@06 IV Last administered on 12/08/16 05: 32; Admin Dose 40 MG; Start 12/06/16 at 06:00 ARIANNA MISTRY NP Dec 08, 2016 12:45
--- NOTE | 2016-12-08 13:46 | DS ---
Date/Time of Note Date/Time of Note DATE: 12/08/16 TIME: 13:40 Discharge Summary Admission/Discharge Info Admit Date/Time Dec 05, 2016 at 13:59 Discharge Date/Time December 08, 2016 Discharge Diagnosis 1. Abdominal pain with transaminitis secondary to choledocholithiasis-resolved status post ERCP with stone extraction -LFTs have trended down, Hep panel negative 2. Asymptomatic bradycardia 3. Recent gastritis 4. Obesity. Weight reduction is advised Patient Condition: Good Hospital Course Patient is a 21-year-old female with history of gallstones status post cholecystectomy several years ago, patient presents with abdominal pain. MRCP suggested possible choledocholithiasis patient was evaluated by GI and had an ERCP with sphincterotomy and stone extraction. Patient did have transaminitis which improved, patient abdominal pain also resolved. This is felt to be stable for discharge and on the day of discharge patient's vitals, labs, physical exam stable and patient had no acute complaints. Patient is obese and lifestyle changes were advised. Patient also had asymptomatic bradycardia which is stable on day of discharge. Home Meds No Active Prescriptions or Reported Meds Follow-up Plan Follow with PCP in 1-2 weeks Primary Care Provider Care Physician No Primary Time spent on discharge: > 30 minutes MAX LINARES Dec 08, 2016 13:46
== END 2016-12-08 14:28 | disposition home or self-care (01) | DRG 446 ==
LOC: MS1 13:59
PROVIDERS: ADMIT Hospitalist; ATTEND Hospitalist
PROC: 0FC98ZZ Extirpation of Matter from Common Bile Duct, Via Natural or Artificial Opening Endoscopic (ICD-10-PCS; principal; 2016-12-06 17:30)
DX: K80.50 Calculus of bile duct without cholangitis or cholecystitis without obstruction (principal); R00.1 Bradycardia, unspecified; K29.70 Gastritis, unspecified, without bleeding; K21.9 Gastro-esophageal reflux disease without esophagitis; E66.9 Obesity, unspecified; Z68.37 Body mass index [BMI] 37.0-37.9, adult; Z71.3 Dietary counseling and surveillance; Z90.49 Acquired absence of other specified parts of digestive tract
CPT/HCPCS: 74181; 74330; 80053; 80061; 81001; 83036; 83735; 84100; 84436; 84443; 84479; 85025; 86704; 86709; 86803; 87340; 93005; A4310; C9113; J1100; J2175; J2250; J2270; J2405; J7030; J7999; Q9967